=== PATIENT | female | born 1965 | race Caucasian/White ===

== ENCOUNTER 2018-09-27 23:20 | Emergency (ER) | payer SELFPAY ==
[~2018-09-27] VITALS: Ht 162.6 cm; Wt 68.0 kg
[2018-09-28] MEDS ORDERED: ONDANSETRON HCL 4MG/2ML INJ IV STA (00:11)
[2018-09-28] MEDS ORDERED: SODIUM CHLORIDE 0.9% 1,000 ML IV ONE (00:11)
[2018-09-28] MEDS ORDERED: LEVETIRACETAM 500MG PREMIX 100 ML IV ONE (00:15)
[2018-09-28 00:42] VITALS: BP 122/52
== END 2018-09-28 00:59 | disposition home or self-care (01) ==
LOC: ER 23:20
DX: R56.9 Unspecified convulsions (principal)
CPT/HCPCS: 99283; J7030